=== PATIENT | male | born 1955 | race Hispanic/Latino ===

== ENCOUNTER 2024-03-26 20:30 | Emergency (ER) | payer OTHER ==
[~2024-03-26] VITALS: Ht 182.9 cm; Wt 103.9 kg
[2024-03-26 20:56] VITALS: PULSE 73; RESP 18; TEMP 97.9; O2SAT 97
[2024-03-26] MEDS ORDERED: ULTRAM 50MG50 MG PO (22:50)
[2024-03-26] MEDS ORDERED: NAPROXEN250 MG PO (22:50)
== END 2024-03-26 23:07 | disposition home or self-care (01) ==
LOC: ER 21:53
DX: S43.101A Unspecified dislocation of right acromioclavicular joint, initial encounter (principal); W01.0XXA Fall on same level from slipping, tripping and stumbling without subsequent striking against object, initial encounter; Y93.01 Activity, walking, marching and hiking; Y92.89 Other specified places as the place of occurrence of the external cause
CPT/HCPCS: 99283